=== PATIENT | male | born 1990 | race Caucasian/White ===

== ENCOUNTER → 2017-05-15 | Outpatient (CLI) | payer BC ==
[~2017-05-15] MED LIST: OPTIRAY 300 IV PRN
--- NOTE | 2017-05-15 13:35 | DIAGNOSTIC IMAGING REPORT ---
IVP W/OR W/O TOMOGRAMS CLINICAL HISTORY: 26 years-old Male presenting with N23 Renal [id number]. TECHNIQUE: An abdominal grout machine tender radiograph is performed. IVP pyelogram was then performed following the IV administration of 100 mL of Optiray 300, tomographic images are acquired in the corticomedullary and excretory phases of enhancement. Overhead views of the renal collecting system and bladder were obtained in multiple obliquities both pre and post void. COMPARISON: CT from 06/11/2015. FINDINGS: Initial grout machine tender radiograph demonstrates no calcifications over the renal shadows to suggest calculi. Moderate stool burden in the right colon slightly degrades evaluation of the right kidney. Osseous structures normal. Lung bases clear. Subsequently, normal enhancement of the bilateral kidneys in the corticomedullary phase. Symmetric excretion of contrast into the renal collecting systems with normal distention and opacification of the renal pelvises and bilateral ureters. No filling defect or evidence of hydronephrosis. No evidence of ureteral stenosis. No abrupt caliber change of the left renal pelvis. The bladder distends normally. Postvoid imaging demonstrates normal decrease urinary bladder volume and decreased contrast in the bilateral urinary collecting systems. IMPRESSION: 1. No renal or ureteral calculus or urothelial lesion. No evidence of a ureteropelvic junction obstruction. Electronically signed by: Celso Vazquez M.D. 05/15/2017 1:33 PM Dictated Date/Time: 05/15/2017 1:28 PM
== END | disposition home or self-care (01) ==
LOC: C.RAD 12:17
PROVIDERS: ATTEND Urology
DX: N23 Unspecified renal colic (principal)